=== PATIENT | female | born 1995 | race Caucasian/White ===

== ENCOUNTER 2016-10-18 08:12 | Emergency (ER) | payer OTHER ==
[2016-10-18] MEDS ORDERED: Zofran 4 MG/2 ML VIAL IV ONE (08:34)
[2016-10-18] MEDS ORDERED: Sodium Chloride 0.9% 1000 ML 1,000 ML IV STA (08:34)
--- NOTE | 2016-10-18 08:37 | ERPHSYRPT ---
- History of Present Illness Time Seen by Provider: 10/18/16 08:27 Historian: patient Patient Subjective Stated Complaint: pt states that she has been vomiting and had diarrhea since 0300 this morning states that she has vomited x 2 with diarrhea x 2. denies fever. Triage Nursing Assessment: pt alert warm and dry resp easy non labored pt ambulted to room without difficulty.abdomen soft non tender wet mucus membranes noted. 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 She has cramping abd pain. Finished last menses yesterday- nl. No fever or chills. Prior cholecystectomy and tonsillectomy. Pt of Dr Foley on vyvanse. Timing/Duration: today (early AM) Allergies/Adverse Reactions: Sulfa (Sulfonamide Antibiotics) Allergy (Verified 09/29/15 11:41) Home Medications: Lisdexamfetamine Dimesylate [Vyvanse] 30 mg PO 10/18/16 [History] Hx Tetanus, Diphtheria Vaccination/Date Given: Yes Hx Influenza Vaccination/Date Given: No Hx Pneumococcal Vaccination/Date Given: No Immunizations Up to Date: Yes - Review of Systems Constitutional: Fatigue, Malaise, Weakness, No Fever, No Chills Eyes: No Symptoms Ears, Nose, & Throat: No Symptoms Cardiac: No Chest Pain Abdominal/Gastrointestinal: Abdominal Pain (cramping), Nausea, Vomiting, Diarrhea Genitourinary Symptoms: No Skin: No Rash Neurological: No Headache All Other Systems: Reviewed and Negative - Past Medical History Pertinent Past Medical History: Yes Neurological History: Other ENT History: No Pertinent History Cardiac History: No Pertinent History Respiratory History: No Pertinent History Endocrine Medical History: No Pertinent History Musculoskeletal History: No Pertinent History GI Medical History: Gallbladder Disease History: No Pertinent History Psycho-Social History: No Pertinent History Female Reproductive Disorders: No Pertinent History Other Medical History: ASTHMA - Past Surgical History Past Surgical History: Yes Neuro Surgical History: No Pertinent History Cardiac: No Pertinent History Respiratory: No Pertinent History Gastrointestinal: Cholecystectomy Genitourinary: No Pertinent History Musculoskeletal: No Pertinent History Female Surgical History: No Pertinent History Other Surgical History: GALLBLADDER,TONSILS - Social History Smoking Status: Never smoker Exposure to second hand smoke: Yes Drug Use: none Patient Lives Alone: No - Female History Hx Last Menstrual Period: yesterday Hx Now: No ( CONTROL) - Nursing Vital Signs Nursing Vital Signs: Initial Vital Signs Temperature 98.0 F Temperature Source Oral Pulse Rate 79 Respiratory Rate 18 Blood Pressure [Right Arm] 126/77 Pain Intensity 7 - Physical Exam General Appearance: alert, other (tearful) Eye Exam: PERRL/EOMI Ears, Nose, Throat Exam: normal ENT inspection, moist mucous membranes Neck Exam: normal inspection, non-tender, supple Respiratory Exam: normal breath sounds, lungs clear Cardiovascular Exam: regular rate/rhythm Gastrointestinal/Abdomen Exam: soft, No tenderness, No distention, No mass, No guarding Back Exam: normal inspection Extremity Exam: normal inspection, normal range of motion Neurologic Exam: alert, oriented x 3, cooperative, sensation nml, No motor deficits Skin Exam: warm, dry, No rash SpO2 Interpretation: normal SpO2: 99 Oxygen Delivery: Room Air - Course Nursing assessment & vital signs reviewed: Yes Ordered Tests: Active Orders 24 hr Category Date Time Status Clean Catch Urine Specimen STAT Care 10/18/16 08:34 Active IV Insertion STAT Care 10/18/16 08:34 Active PO Popsicle STAT Care 10/18/16 09:24 Active HCG,QUALITATIVE URINE Stat Lab 10/18/16 09:16 Completed UA W/ MICROSCOPIC Stat Lab 10/18/16 08:34 Completed Medication Summary Generic Name Dose Route Start Last Admin Trade Name Freq PRN Reason Stop Dose Admin Sodium Chloride 1,000 mls @ 999 mls/hr 10/18/16 08:34 10/18/16 08:52 Sodium Chloride 0.9% 1000 Ml IV 10/18/16 09:34 999 mls/hr .Q1H1M STA Administration Discontinued Medications Generic Name Dose Route Start Last Admin Trade Name Freq PRN Reason Stop Dose Admin Sodium Chloride Confirm 10/18/16 08:38 Sodium Chloride 0.9% 1000 Ml Administered 10/18/16 08:39 Dose 1,000 mls @ ud .ROUTE .STK-MED ONE Ondansetron HCl 4 mg 10/18/16 08:34 10/18/16 08:52 Zofran 4 Mg/2 Ml Vial IV 10/18/16 08:35 4 mg STAT ONE Administration Ondansetron HCl Confirm 10/18/16 08:38 Zofran 4 Mg/2 Ml Vial Administered 10/18/16 08:39 Dose 4 mg .ROUTE .STK-MED ONE Lab/Rad Data: Laboratory Results 10/18/16 10/18/16 Range/Units 09:16 08:34 Ur Collection Type CLEAN CATCH Urine Color YELLOW (YELLOW) Urine Appearance CLOUDY (CLEAR) Urine pH 5.5 (5-6) Ur Specific [place] >=1.030 (1.005-1.025) Urine Protein 30 (Negative) Urine Glucose (UA) NEGATIVE (NEGATIVE) mg/dL Urine Ketones NEGATIVE (NEGATIVE) Urine Nitrite NEGATIVE (NEGATIVE) Urine Bilirubin SMALL (NEGATIVE) Urine Urobilinogen 0.2 (0-1) mg/dL Urine WBC (Auto) NEGATIVE (NEGATIVE) Urine RBC (Auto) NEGATIVE (0-5) Clint/ul Urine HCG, Qual NEGATIVE (Negative) Specimen Received 10/18/16 0830 - Progress Progress Note: 10/18/16 09:33 Pt was given IVF bolus and zofran. Will release with V/D instr and zofran Rx. Counseled pt/family regarding: lab results, diagnosis, need for follow-up - Departure Time of Disposition: 09:33 Departure Disposition: Home Clinical Impression: Vomiting and diarrhea Condition: Stable Critical Care Time: No Referrals: SVETA FOLEY [Primary Care Provider] - Instructions: Vomiting -- Adult, Diarrhea and Traveler's Diarrhea -- Adult Additional Instructions: VOMITING AND DIARRHEA 1. Take only small amounts of clear, cool liquids at frequent intervals as tolerated for the next 24-48 hours. Avoid milk products and orange juice. Clear liquids are those liquids which you can see through. 2. Pedialyte and popsicles are recommended clear liquids. 3. If the condition worsens you should contact your family physician or return to the emergency department for re-evaluation. Rx zofran. Sip frequent fluids. 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 Prescriptions: Ondansetron [Zofran Odt] 4 mg PO Q6HPRN PRN #10 tab.rapdis PRN Reason: Nausea/Vomiting
[2016-10-18] MEDS ORDERED: Sodium Chloride 0.9% 1000 ML 1,000 ML ONE (08:38)
[2016-10-18] MEDS ORDERED: Zofran 4 MG/2 ML VIAL ONE (08:38)
[2016-10-18 09:29] LABS: Collection Type CLEAN CATCH
[2016-10-18 09:30] LABS: COMPLETE URINE MICROSCOPIC? YES; Ph 5.5 (5-6)
[2016-10-18 09:37] LABS: Bacteria FEW /HPF (NEGATIVE); Epithelial Cells FEW /HPF (FEW); WBC 0-2 /HPF (0-5)
[2016-10-18 09:51] VITALS: BP 112/56; PULSE 70; O2SAT 100
== END 2016-10-18 10:06 | disposition home or self-care (01) ==
LOC: ED 08:12
DX: R11.2 Nausea with vomiting, unspecified (principal); R19.7 Diarrhea, unspecified; R10.9 Unspecified abdominal pain
CPT/HCPCS: 36000; 81000; 84703; 96360; 96374; 99283; 99284; J2405

== ENCOUNTER 2017-03-23 07:55 | Emergency (ER) | payer OTHER ==
[2017-03-23] MEDS ORDERED: Sodium Chloride 0.9% 1000 ML 1,000 ML IV STA (08:20)
[2017-03-23] MEDS ORDERED: Vistaril 50 MG/ML IM ONE ×2 (08:23→08:55)
--- NOTE | 2017-03-23 08:31 | ERPHSYRPT ---
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 PT DENIES ANY LOSS OF BOWEL OR BLADDER STATES THE SAME THING HAPPENED ABOUT 1 WEEK AGO WAS EVALUATEED IN THE ER STATES "THEY GAVE ME MEDS FOR MY SINUS'S" Triage Nursing Assessment: PT ALERT WARM AND DRY RESP EASY NON LABORED PT AMBULATED FROM WHEELCHAIR TO BED WITHOUT DIFFICULTY. PUPILS ROUND EQUAL AND REACTIVE NS ON THE MONITOR. MOVES ALL EXTREMITES WELL. Physician History: CC: passed out Hx: 21 y/o patient of Dr Foley currently on normal menstrual cycle. She was at work this AM about an hour ago and felt nausea, went to bathroom and had unexpected diarrhea and vomited. She then felt hot. Had severe headache. Got up to walk and passed out without injury. No neck or back pain. No fever or chills. She had a similar episode of headache one week ago. No N/T/W. No chest pain. No abd pain. Timing/Duration: today Severity: moderate Allergies/Adverse Reactions: Sulfa (Sulfonamide Antibiotics) Allergy (Verified 09/29/15 11:41) Home Medications: Sertraline HCl [Zoloft] 100 mg PO 03/23/17 [History] Hx Tetanus, Diphtheria Vaccination/Date Given: Yes Hx Influenza Vaccination/Date Given: No Hx Pneumococcal Vaccination/Date Given: No Immunizations Up to Date: Yes - Review of Systems Constitutional: Malaise, No Fever, No Chills Eyes: No Symptoms Ears, Nose, & Throat: No Symptoms Respiratory: No Cough, No Dyspnea Cardiac: Syncope, No Chest Pain Abdominal/Gastrointestinal: Nausea, Vomiting, Diarrhea, No Abdominal Pain Genitourinary Symptoms: Vaginal Bleeding (menses), No Dysuria, No Musculoskeletal: No Back Pain, No Neck Pain Skin: No Rash Neurological: Headache, No Focal Weakness, No Parasthesia All Other Systems: Reviewed and Negative - Past Medical History Pertinent Past Medical History: Yes Neurological History: Other ENT History: No Pertinent History Cardiac History: No Pertinent History Respiratory History: No Pertinent History Endocrine Medical History: No Pertinent History Musculoskeletal History: No Pertinent History GI Medical History: Gallbladder Disease History: No Pertinent History Psycho-Social History: No Pertinent History Female Reproductive Disorders: No Pertinent History Other Medical History: ASTHMA - Past Surgical History Past Surgical History: Yes Neuro Surgical History: No Pertinent History Cardiac: No Pertinent History Respiratory: No Pertinent History Gastrointestinal: Cholecystectomy Genitourinary: No Pertinent History Musculoskeletal: No Pertinent History Female Surgical History: No Pertinent History Other Surgical History: GALLBLADDER,TONSILS - Social History Smoking Status: Never smoker Exposure to second hand smoke: No Drug Use: none Patient Lives Alone: No - Female History Hx Last Menstrual Period: NOW Hx Now: No ( CONTROL) - Nursing Vital Signs Nursing Vital Signs: Initial Vital Signs Temperature 98.0 F Pulse Rate 78 Respiratory Rate 18 Blood Pressure [] 110/59 Pain Intensity 7 - Physical Exam General Appearance: alert Eye Exam: PERRL/EOMI Ears, Nose, Throat Exam: normal ENT inspection, moist mucous membranes Neck Exam: normal inspection, non-tender, supple, No meningismus, No midline tenderness Respiratory Exam: normal breath sounds, lungs clear Cardiovascular Exam: regular rate/rhythm, No murmur Gastrointestinal/Abdomen Exam: soft, No tenderness, No distention, No mass, No guarding Extremity Exam: normal inspection, normal range of motion Neurologic Exam: alert, oriented x 3, cooperative, cut out stitcher II-XII nml as tested, sensation nml, No motor deficits Skin Exam: warm, dry, No rash SpO2 Interpretation: normal SpO2: 98 Oxygen Delivery: Room Air - Course Nursing assessment & vital signs reviewed: Yes EKG Interpreted by Me: RATE (64), Sinus Rhythm, NORMAL AXIS, NORMAL INTERVALS ( [id number]), NORMAL QRS, NORMAL ST-T - CT Exams head CT Interpretation: Discussed w/radiologist (negative, some artifact) Ordered Tests: Active Orders 24 hr Category Date Time Status Technical Services Representative STAT Care 03/23/17 08:20 Active EKG-ER Only STAT Care 03/23/17 08:20 Active IV Insertion STAT Care 03/23/17 08:20 Active Pulse Oximetry (ED) STAT Care 03/23/17 08:20 Active HEAD WITHOUT CONTRAST [CT] Stat Exams 03/23/17 08:49 Taken CBC W DIFF Stat Lab 03/23/17 08:35 Completed CMP Stat Lab 03/23/17 08:35 Completed HCG QUALITATIVE,SERUM Stat Lab 03/23/17 08:35 Completed Medication Summary Discontinued Medications Generic Name Dose Route Start Last Admin Trade Name Ryley PRN Reason Stop Dose Admin Hydroxyzine HCl 50 mg 03/23/17 08:23 03/23/17 08:59 Vistaril 50 Mg/Ml IM 03/23/17 08:24 50 mg STAT ONE Administration Hydroxyzine HCl Confirm 03/23/17 08:55 Vistaril 50 Mg/Ml Administered 03/23/17 08:56 Dose 50 mg IM .STK-MED ONE Sodium Chloride 1,000 mls @ 999 mls/hr 03/23/17 08:20 03/23/17 08:58 Sodium Chloride 0.9% 1000 Ml IV 03/23/17 09:20 999 mls/hr .Q1H1M STA Administration Sodium Chloride Confirm 03/23/17 08:55 Sodium Chloride 0.9% 1000 Ml Administered 03/23/17 08:56 Dose 1,000 mls @ ud .ROUTE .STK-MED ONE Lab/Rad Data: Laboratory Result Diagrams 03/23/17 08:35 03/23/17 08:35 Laboratory Results 03/23/17 03/23/17 03/23/17 Range/Units 08:35 08:35 08:35 WBC 9.1 (4.0-10.5) K/mm3 RBC 3.98 L (4.1-5.4) M/mm3 Hgb 11.9 L (12.0-16.0) gm/dl Hct 37.1 (35-47) % MCV 93.2 (78-100) fl MCH 29.8 (26-32) pg MCHC 32.1 (32-36) g/dl RDW 12.6 (11.5-14.0) % Plt Count 214 (150-450) K/mm3 MPV 12.0 H (6-9.5) fl Gran % 66.5 H (36.0-66.0) % Lymphocytes % 19.1 L (24.0-44.0) % Monocytes % 13.1 H (0.0-12.0) % Eosinophils % 1.1 (0.00-5.0) % Basophils % 0.2 (0.0-0.4) % Basophils # 0.02 (0-0.4) Sodium 140 (136-145) mEq/L Potassium 3.3 L (3.5-5.1) mEq/L Chloride 104 (98-107) mEq/L Carbon Dioxide 26.7 (21-32) mEq/L Anion Gap 12.8 (5-15) MEQ/L BUN 13 (9-20) mg/dL Creatinine 0.77 (0.55-1.30) mg/dl Estimated GFR > 60 ML/MIN Glucose 94 (70-110) MG/DL Calcium 8.9 (8.5-10.1) mg/dL Total Bilirubin 1.20 H (0.2-1.0) mg/dL AST 16 (15-37) U/L ALT 12 (12-78) U/L Alkaline Phosphatase 65 (46-116) U/L Serum Total Protein 7.0 (6.4-8.2) gm/dL Albumin 3.8 (3.4-5.0) g/dL Serum , Qual NEGATIVE (Negative) - Progress Progress Note: 03/23/17 10:56 Pt stable. No vomiting here. She needs work slip. Advised no driving, climbing, swimming until recheck with Dr Foley. Will release with instr. Counseled pt/family regarding: lab results, diagnosis, need for follow-up, rad results - Departure Time of Disposition: 10:56 Departure Disposition: Home Clinical Impression: Syncope Condition: Stable Critical Care Time: No Referrals: SVETA FOLEY [Primary Care Provider] - Instructions: Fainting Additional Instructions: No driving, climbing, swimming until cleared by Dr Foley. Stay with family todya, rest, and sip fluids. Return for problems or concerns.
[2017-03-23] MEDS ORDERED: Sodium Chloride 0.9% 1000 ML 1,000 ML ONE (08:55)
[2017-03-23 09:01] LABS: BASOPHIL % 0.2 % (0.0-0.4); Eosinophil % 1.1 % (0.00-5.0); Granulocytes % 66.5 % (36.0-66.0); Lymphocytes % 19.1 % (24.0-44.0); Mean Cell Volume 93.2 fl (78-100); Mean Corpuscular Hemoglobin 29.8 pg (26-32); Monocytes % 13.1 % (0.0-12.0); Platelet Count 214 K/mm3 (150-450); Red Blood Count 3.98 M/mm3 (4.1-5.4); Red Cell Distribution Width 12.6 % (11.5-14.0); White Blood Count 9.1 K/mm3 (4.0-10.5)
[2017-03-23 09:24] LABS: ALBUMIN 3.8 g/dL (3.4-5.0); ALKALINE PHOSPHATASE 65 U/L (46-116); ANION GAP 12.8 MEQ/L (5-15); BLOOD UREA NITROGEN 13 mg/dL (9-20); CHLORIDE 104 mEq/L (98-107); Carbon Dioxide 26.7 mEq/L (21-32); Glucose 94 MG/DL (70-110); Potassium 3.3 mEq/L (3.5-5.1); SGOT/AST 16 U/L (15-37); SGPT/ALT 12 U/L (12-78); SODIUM 140 mEq/L (136-145)
[2017-03-23 11:18] VITALS: BP 110/56; PULSE 87; O2SAT 97
--- NOTE | 2017-03-23 16:17 | XRAY ---
Indication: Syncopal episode. Multiple contiguous axial images obtained through the head without contrast. Comparison: June 21, 2006. Minimal midbrain motion artifact and artifact from left external ear metallic jewelry. Otherwise again grossly normal appearing brain parenchyma, ventricles, and bony calvarium. Visualized paranasal sinuses and mastoid air cells are pneumatized and clear. Impression: Motion and metallic artifact as detailed. Again grossly normal CT head without contrast exam. CTDI 70.98
== END 2017-03-23 11:18 | disposition home or self-care (01) ==
LOC: ED 07:55
DX: R55 Syncope and collapse (principal); R11.2 Nausea with vomiting, unspecified; R19.7 Diarrhea, unspecified; R51 Headache
CPT/HCPCS: 36000; 36415; 70450; 80053; 84703; 85025; 93005; 93041; 96372; 99283; 99284; J3410

== ENCOUNTER 2017-04-09 08:36 | Emergency (ER) | payer OTHER ==
[2017-04-09 08:45] VITALS: PULSE 82
[2017-04-09] MEDS ORDERED: TORAdol 30 mg Injection IM ONE (08:54)
[2017-04-09] MEDS ORDERED: BENADRYL 50 MG/ML IM ONE (08:54)
[2017-04-09] MEDS ORDERED: TORAdol 30 mg Injection ONE (08:58)
[2017-04-09] MEDS ORDERED: BENADRYL 50 MG/ML ONE (08:58)
--- NOTE | 2017-04-09 09:00 | ERPHSYRPT ---
- History of Present Illness Time Seen by Provider: 04/09/17 08:50 Source: patient Exam Limitations: no limitations Patient Subjective Stated Complaint: headache Triage Nursing Assessment: headache for 1 hr. both sides of head. states she ' gets headaches but is getting them more often recently. i have an appt with [facility] on ' nausea with no vomiting. pupils venita. skin warm and dry. denies fever Physician History: This is a 21-year-old white female who was seen here on March 23, 2017 secondary to headache at that time she had CBC CMP hCG head CT all which are essentially normal she was given Vistaril IV fluids and discharged she states she followed up with her family doctor and had a normal EEG. She states she has had a headache today which began one hour ago while at work on both sides of her head associated with nausea no vomiting and photophobia she has no fevers. She has not been otherwise ill. Past medical history includes asthma. Past surgical history includes cholecystectomy and tonsillectomy. Social history negative for tobacco or alcohol use. Last menstrual period 2 weeks ago. Timing/Duration: today (one hour ago) Quality: aching Head Pain Location: parietal Severity of Pain-Max: moderate Severity of Pain-Current: moderate Modifying Factors: Worsens With: exposure to light, immobilization, medication, movement, rest, noise, position Associated Symptoms: nausea/vomiting, other (photophobia), No confusion, No dizziness, No fatigue, No facial pain, No fever/chills, No flushing, No light- headedness, No loss of consciousness, No nasal congestion, No nasal drainage, No neck pain, No numbness in legs/feet, No rash, No sweating, No scotoma, No seizures, No sinus infection, No sensitive to light, No speech problems, No stiff neck, No trouble walking, No vision changes, No visual disturbance, No weakness Previous symptoms: same symptoms as today (patient seen in this emergency room 2 weeks ago for same, normal head CT and labs reports EEG recently which is normal) Allergies/Adverse Reactions: Sulfa (Sulfonamide Antibiotics) Allergy (Verified 04/09/17 08:45) Home Medications: Sertraline HCl [Zoloft] 100 mg PO HS 03/23/17 [History] Lamotrigine 100 mg [lamICTAL 100MG TABLET] 100 mg PO HS 04/09/17 [History] Hx Tetanus, Diphtheria Vaccination/Date Given: Yes Hx Influenza Vaccination/Date Given: No Hx Pneumococcal Vaccination/Date Given: No Immunizations Up to Date: Yes - Review of Systems Constitutional: No Fever, No Chills Eyes: Photophobia, No Discharge, No Eye Pain, No Eye Redness, No Itchy, No Tearing, No Vision Changes, No Double Vision, No Foreign Body Sensation Ears, Nose, & Throat: No Symptoms Respiratory: No Cough, No Dyspnea Cardiac: No Chest Pain, No Edema, No Syncope Abdominal/Gastrointestinal: Nausea, Vomiting, No Abdominal Pain, No Diarrhea, No Constipation, No Hematemesis, No Hematochezia, No Melena, No Dysphagia, No Appetite Changes Genitourinary Symptoms: No Dysuria Musculoskeletal: No Back Pain, No Neck Pain Skin: No Rash Neurological: Headache, No Dizziness, No Focal Weakness, No Gait Changes ( sounds wonderful), No Irritability, No Lethargy, No Paralysis, No Parasthesia, No Seizure, No Sensory Changes, No Speech Changes, No Tics, No Vertigo Psychological: No Symptoms Endocrine: No Symptoms All Other Systems: Reviewed and Negative - Past Medical History Pertinent Past Medical History: Yes Neurological History: Other ENT History: No Pertinent History Cardiac History: No Pertinent History Respiratory History: Asthma Endocrine Medical History: No Pertinent History Musculoskeletal History: No Pertinent History GI Medical History: Gallbladder Disease History: No Pertinent History Psycho-Social History: Bipolar, Depression Female Reproductive Disorders: No Pertinent History Other Medical History: headaches - Past Surgical History Past Surgical History: Yes Neuro Surgical History: No Pertinent History Cardiac: No Pertinent History Respiratory: No Pertinent History Gastrointestinal: Cholecystectomy Genitourinary: No Pertinent History Musculoskeletal: No Pertinent History Female Surgical History: No Pertinent History Other Surgical History: tonsils - Social History Smoking Status: Never smoker Exposure to second hand smoke: No Drug Use: none Patient Lives Alone: No - Female History Hx Last Menstrual Period: 2 weeks Hx Now: No ( CONTROL) - Nursing Vital Signs Nursing Vital Signs: Initial Vital Signs Temperature 98.9 F 04/09/17 08:41 Pulse Rate 82 04/09/17 08:41 Respiratory Rate 18 04/09/17 08:41 Blood Pressure 112/75 04/09/17 08:41 O2 Sat by Pulse Oximetry 100 04/09/17 08:41 Pain Scale Pain Intensity 5 - Physical Exam General Appearance: mild distress, other (well-developed well-nourished white female alert oriented 3 in mild distress) Eye Exam: PERRL/EOMI, eyes nml inspection, other (fundi are unremarkable) Ears, Nose, Throat Exam: normal ENT inspection, moist mucous membranes Neck Exam: normal inspection, supple, full range of motion, No meningismus Respiratory Exam: normal breath sounds, lungs clear Cardiovascular Exam: regular rate/rhythm, normal heart sounds Gastrointestinal/Abdominal Exam: soft, No tenderness, No distention Back Exam: normal inspection, normal range of motion Mental Status Exam: alert, oriented x 3, 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 Exam: normal speech, PERRL, No facial droop Coordination/Gait Exam: normal cerebellar function Motor/Sensory Exam: no motor deficit, no sensory deficit, no pronator drift, No pronator drift (R), No pronator drift (L), No sensory deficit, No weak motor strength RUE, No weak motor strength LUE, No weak motor strength RLE, No weak motor strength LLE (motor strength foot over the) DTR Exam: ankle (R): 2+, ankle (L): 2+ Skin Exam: normal color, warm, dry, No rash SpO2 Interpretation: normal (100%) SpO2: 100 Ordered Tests: Medication Summary Discontinued Medications Generic Name Dose Route Start Last Admin Trade Name Ryley PRN Reason Stop Dose Admin Diphenhydramine HCl 25 mg 04/09/17 08:54 04/09/17 08:59 Benadryl 50 Mg/Ml IM 04/09/17 08:55 25 mg STAT ONE Administration Diphenhydramine HCl Confirm 04/09/17 08:58 Benadryl 50 Mg/Ml Administered 04/09/17 08:59 Dose 50 mg .ROUTE .STK-MED ONE Ketorolac Tromethamine 60 mg 04/09/17 08:54 04/09/17 08:59 Toradol 30 Mg Injection IM 04/09/17 08:55 60 mg STAT ONE Administration Ketorolac Tromethamine Confirm 04/09/17 08:58 Toradol 30 Mg Injection Administered 04/09/17 08:59 Dose 60 mg .ROUTE .STK-MED ONE - Progress Progress: improved Air Movement: fair Progress Note: 04/09/17 09:41 Patient is feeling better. Patient with normal EEG normal CT normal labs 2 weeks ago. No fevers today some nausea. Markedly improvement with Benadryl and Toradol not completely pain-free. Will send patient home have her rest dark quiet room Tylenol every 4 hours or Motrin every 6 hours as needed for pain plenty of fluids. Patient to follow-up with her family Dr. Dr. Foley. Return for acute distress or for severe symptoms. - Departure Time of Disposition: 09:42 Departure Disposition: Home Clinical Impression: Headache Qualifiers: Headache type: unspecified Headache chronicity pattern: acute headache Intractability: not intractable Qualified Code(s): R51 - Headache Condition: Fair Critical Care Time: No Referrals: SVETA FOLEY [Primary Care Provider] - Instructions: Headache Additional Instructions: Return home. Rest in a dark quiet room. Tylenol every 4 hours or Motrin every 6 hours as needed for pain. Follow-up with Dr. Foley. Return for acute distress or for severe symptoms.
[2017-04-09 09:40] VITALS: BP 109/62
[2017-04-09 09:44] VITALS: O2SAT 100
== END 2017-04-09 09:45 | disposition home or self-care (01) ==
LOC: ED 08:36
DX: R51 Headache (principal); R11.0 Nausea
CPT/HCPCS: 96372; 99284; J1200; J1885

== ENCOUNTER 2017-04-22 04:39 | Emergency (ER) | payer OTHER ==
[2017-04-22] MEDS ORDERED: TORAdol 30 mg Injection IM ONE (05:04)
[2017-04-22] MEDS ORDERED: Vistaril 50 MG/ML IM ONE ×2 (05:04→05:07)
[2017-04-22] MEDS ORDERED: TORAdol 30 mg Injection ONE (05:07)
--- NOTE | 2017-04-22 05:10 | ERPHSYRPT ---
- History of Present Illness Time Seen by Provider: 04/22/17 04:57 Source: patient Patient Subjective Stated Complaint: Pt C/O intermittent headaches x 1 month. Sts this episode x 3 hours at home unrelieved with excedrin. Sts lights and noise worsen pain. Sts nausea with pain. Describes as crescendo headache. Describes as a band around head. Hx of migraines when she was younger. Triage Nursing Assessment: Pt alert, oriented, answers all questions appropriately. Pupils PERRLA. Pt able to follow all commands. Steady gait to tx room noted. Physician History: CC: headache Hx: 21 y/o patient of Dr Foley. She has hx of bipolar disease. She has had recent headaches since stopping her zoloft and lamictal a month ago. She reports gradual worsening headache past 3 hours. Similar to prior headaches. Worse in back of her head. She has nausea and photophobia. She has no fever. No N/T/W. She was getting ready to go to work so came here. LMP 3 days ago. Severity of Pain-Max: severe Severity of Pain-Current: severe Allergies/Adverse Reactions: Sulfa (Sulfonamide Antibiotics) Allergy (Verified 04/22/17 04:46) Home Medications: Sertraline HCl [Zoloft] 100 mg PO HS 03/23/17 [History] Lamotrigine 100 mg [lamICTAL 100MG TABLET] 100 mg PO HS 04/09/17 [History] Hx Tetanus, Diphtheria Vaccination/Date Given: Yes Hx Influenza Vaccination/Date Given: No Hx Pneumococcal Vaccination/Date Given: No Immunizations Up to Date: Yes - Review of Systems Constitutional: No Fever, No Chills Eyes: Photophobia Ears, Nose, & Throat: No Symptoms Respiratory: No Cough Cardiac: No Chest Pain Abdominal/Gastrointestinal: Nausea, No Abdominal Pain, No Vomiting, No Diarrhea Genitourinary Symptoms: No Musculoskeletal: No Neck Pain Skin: No Rash Neurological: Headache, No Dizziness, No Focal Weakness, No Parasthesia All Other Systems: Reviewed and Negative - Past Medical History Pertinent Past Medical History: Yes Neurological History: Other ENT History: No Pertinent History Cardiac History: No Pertinent History Respiratory History: Asthma Endocrine Medical History: No Pertinent History Musculoskeletal History: No Pertinent History GI Medical History: Gallbladder Disease History: No Pertinent History Psycho-Social History: Bipolar, Depression Female Reproductive Disorders: No Pertinent History Other Medical History: headaches - Past Surgical History Past Surgical History: Yes Neuro Surgical History: No Pertinent History Cardiac: No Pertinent History Respiratory: No Pertinent History Gastrointestinal: Cholecystectomy Genitourinary: No Pertinent History Musculoskeletal: No Pertinent History Female Surgical History: No Pertinent History Other Surgical History: tonsils - Social History Smoking Status: Never smoker Exposure to second hand smoke: No Drug Use: none Patient Lives Alone: No (works [employer]) - Female History Hx Last Menstrual Period: 3 days ago Hx Now: No ( CONTROL) - Nursing Vital Signs Nursing Vital Signs: Initial Vital Signs Temperature 97.8 F 04/22/17 04:46 Pulse Rate 75 04/22/17 04:46 Respiratory Rate 16 04/22/17 04:46 Blood Pressure 108/69 04/22/17 04:46 O2 Sat by Pulse Oximetry 100 04/22/17 04:46 Pain Scale Pain Intensity 8 - Physical Exam General Appearance: alert Eye Exam: PERRL/EOMI Ears, Nose, Throat Exam: normal ENT inspection, moist mucous membranes Neck Exam: normal inspection, non-tender, supple Respiratory Exam: normal breath sounds, lungs clear Cardiovascular Exam: regular rate/rhythm Gastrointestinal/Abdominal Exam: soft, No tenderness, No distention Back Exam: normal inspection, normal range of motion Extremity Exam: normal inspection, normal range of motion Mental Status Exam: alert, oriented x 3, 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 NRB oxygen and IM toradol and vistaril given. Advised she see Dr Foley and Dr Velazquez as likely needs to be on prevention meds and also bipolar meds. Counseled pt/family regarding: diagnosis, need for follow-up - Departure Time of Disposition: 05:09 Departure Disposition: Home Clinical Impression: Headache, Bipolar disorder Condition: Stable Critical Care Time: No Referrals: SVETA FOLEY [Primary Care Provider] - Instructions: Headache
[2017-04-22 05:23] VITALS: O2SAT 100
[2017-04-22 05:39] VITALS: BP 128/74; PULSE 65
== END 2017-04-22 05:45 | disposition home or self-care (01) ==
LOC: ED 04:39
DX: R51 Headache (principal); F31.9 Bipolar disorder, unspecified
CPT/HCPCS: 96372; 99283; J1885; J3410

== ENCOUNTER 2017-05-25 10:56 | Emergency (ER) | payer SELFPAY ==
[2017-05-25 11:04] VITALS: BP 100/45; PULSE 93; O2SAT 96
--- NOTE | 2017-05-25 11:15 | ERPHSYRPT ---
- History of Present Illness Time Seen by Provider: 05/25/17 11:09 Source: patient Exam Limitations: no limitations Patient Subjective Stated Complaint: PT REPORTS SHE WAS MOPPING LAST NIGHT LATISHA 2200 WHEN SHE SLIPPED ET FELL-REPORTS HIT HER MOUTH ON COFFEE TABLE-REPORTS PAIN ET LAC-DENIES LOC-DENIES N/V Triage Nursing Assessment: PT PINK WARM ET [id number] NOTED TO LEFT CORNER OF MOUTH-PT ABLE TO SPEAK WITHOUT DIFFICULTY Physician History: 21-year-old female came to the emergency room with injury to her left side. Angle of mouth which happened last night approximately 12 hours ago while she was mopping the floor and hit the side of the table on the side of her mouth. Denies any other injury. Timing/Duration: yesterday Severity: mild Associated Symptoms: denies symptoms Allergies/Adverse Reactions: Sulfa (Sulfonamide Antibiotics) Allergy (Verified 05/25/17 11:04) Hives Home Medications: No Reportable Medications [No Reported Medications] 05/25/17 [History] Hx Tetanus, Diphtheria Vaccination/Date Given: Yes Hx Influenza Vaccination/Date Given: No Hx Pneumococcal Vaccination/Date Given: No Immunizations Up to Date: Yes - Review of Systems Constitutional: No Symptoms Eyes: No Symptoms Ears, Nose, & Throat: Mouth Swelling Respiratory: No Symptoms Cardiac: No Symptoms Abdominal/Gastrointestinal: No Symptoms Musculoskeletal: Fall, Injury - Past Medical History Pertinent Past Medical History: Yes Neurological History: Other ENT History: No Pertinent History Cardiac History: No Pertinent History Respiratory History: Asthma Endocrine Medical History: No Pertinent History Musculoskeletal History: No Pertinent History GI Medical History: Gallbladder Disease History: No Pertinent History Psycho-Social History: Bipolar, Depression Female Reproductive Disorders: No Pertinent History Other Medical History: headaches - Past Surgical History Past Surgical History: Yes Neuro Surgical History: No Pertinent History Cardiac: No Pertinent History Respiratory: No Pertinent History Gastrointestinal: Cholecystectomy Genitourinary: No Pertinent History Musculoskeletal: No Pertinent History Female Surgical History: No Pertinent History Other Surgical History: tonsils - Social History Smoking Status: Never smoker Exposure to second hand smoke: No Drug Use: none Patient Lives Alone: No - Female History Hx Last Menstrual Period: 2 WKS AGO Hx Now: No ( CONTROL) - Nursing Vital Signs Nursing Vital Signs: Initial Vital Signs Temperature 98.3 F 05/25/17 11:00 Pulse Rate 93 H 05/25/17 11:00 Respiratory Rate 20 09/16/17 11:00 Blood Pressure 100/45 05/25/17 11:00 O2 Sat by Pulse Oximetry 96 05/25/17 11:00 Pain Scale Pain Intensity 10 - Physical Exam General Appearance: no apparent distress Eye Exam: PERRL/EOMI Ears, Nose, Throat Exam: normal ENT inspection, other (swollen left side angle of mouth, no dental or inner mouth injury) SpO2: 96 Oxygen Delivery: Room Air - Course Nursing assessment & vital signs reviewed: Yes - Progress Progress: unchanged Progress Note: 05/25/17 11:12 Patient is informed that her wound is more than 12 hours old. She already has started healing process and we will not be able to take a suture. She is advised to put icepack, take 200 mg ibuprofen and 325 mg Tylenol every 4 hours for next 24 hours, then every 6 hours for next 48 hours. She is advised to follow-up with her primary care physician in next 2-3 days. Counseled pt/family regarding: diagnosis, need for follow-up - Departure Time of Disposition: 11:14 Departure Disposition: Home Clinical Impression: Injury of face, superficial Qualifiers: Encounter type: initial encounter Qualified Code(s): S00.80XA - Unspecified superficial injury of other part of head, initial encounter Condition: Good Critical Care Time: No Referrals: SVETA MONTESINOS [Primary Care Provider] - Additional Instructions: Your wound is more than 12 hours old. She already has started healing process and we will not be able to take a suture. You are advised to put ice pack, take 200 mg ibuprofen and 325 mg Tylenol every 4 hours for next 24 hours, then every 6 hours for next 48 hours. You are advised to follow-up with her primary care physician in next 2-3 days.
== END 2017-05-25 11:15 | disposition home or self-care (01) ==
LOC: ED 10:56
DX: S00.80XA Unspecified superficial injury of other part of head, initial encounter (principal); W01.190A Fall on same level from slipping, tripping and stumbling with subsequent striking against furniture, initial encounter
CPT/HCPCS: 99281

== ENCOUNTER 2017-08-05 12:55 | Emergency (ER) | payer OTHER ==
[2017-08-05] MEDS ORDERED: Sodium Chloride 0.9% 1000 ML 1,000 ML IV STA (13:27)
[2017-08-05] MEDS ORDERED: Zofran 4 MG/2 ML VIAL IV ONE (13:27)
--- NOTE | 2017-08-05 13:35 | ERPHSYRPT ---
- History of Present Illness Time Seen by Provider: 08/05/17 13:27 Historian: patient Exam Limitations: no limitations Patient Subjective Stated Complaint: Nausea, vomiting and generalized abdominal pain Triage Nursing Assessment: No distress noted, pt states generalized abdominal pain onset at 0400, nausea and vomiting began shortly after. Physician History: 22-year-old white female arrives with complaint of nausea vomiting diffuse abdominal pain symptoms since 4 AM. Patient states she's had multiple loose stools and vomiting. No fevers. Past medical history includes asthma, gallbladder disease, bipolar depression, headaches. Past surgical history includes cholecystectomy and tonsils. Timing/Duration: today (4 AM) Activities at Onset: rest Quality: cramping Abdominal Pain Onset Location: generalized abdomen Pain Radiation: no radiation Severity of Pain-Max: moderate Severity of Pain-Current: mild Modifying Factors: Improves With: nothing Associated Symptoms: diarrhea, nausea, vomiting, No back, No chest pain, No diaphoresis, No fever/chills, No fatigue, No headache, No heartburn, No loss of appetite, No neck pain, No rash, No shortness of breath, No syncope, No weakness Previous symptoms: no prior history Allergies/Adverse Reactions: Sulfa (Sulfonamide Antibiotics) Allergy (Verified 05/25/17 11:04) Hives Hx Tetanus, Diphtheria Vaccination/Date Given: Yes Hx Influenza Vaccination/Date Given: No Hx Pneumococcal Vaccination/Date Given: No Immunizations Up to Date: No - Review of Systems Constitutional: No Fever, No Chills Eyes: No Symptoms Ears, Nose, & Throat: No Symptoms Respiratory: No Cough, No Dyspnea Cardiac: No Chest Pain, No Edema, No Syncope Abdominal/Gastrointestinal: No Abdominal Pain, No Nausea, No Vomiting, No Diarrhea Genitourinary Symptoms: No Dysuria Musculoskeletal: No Back Pain, No Neck Pain Skin: No Rash Neurological: No Dizziness, No Focal Weakness, No Sensory Changes Psychological: No Symptoms Endocrine: No Symptoms All Other Systems: Reviewed and Negative - Past Medical History Pertinent Past Medical History: Yes Neurological History: Other ENT History: No Pertinent History Cardiac History: No Pertinent History Respiratory History: Asthma Endocrine Medical History: No Pertinent History Musculoskeletal History: No Pertinent History GI Medical History: Gallbladder Disease History: No Pertinent History Psycho-Social History: Bipolar, Depression Female Reproductive Disorders: No Pertinent History Other Medical History: headaches - Past Surgical History Past Surgical History: Yes Neuro Surgical History: No Pertinent History Cardiac: No Pertinent History Respiratory: No Pertinent History Gastrointestinal: Cholecystectomy Genitourinary: No Pertinent History Musculoskeletal: No Pertinent History Female Surgical History: No Pertinent History Other Surgical History: tonsils - Social History Smoking Status: Never smoker Exposure to second hand smoke: No Drug Use: none Patient Lives Alone: Yes - Female History Hx Last Menstrual Period: 07/22/2017 Hx Now: No - Nursing Vital Signs Nursing Vital Signs: Initial Vital Signs Temperature 98.2 F 08/05/17 12:59 Respiratory Rate 15 08/05/17 12:59 Blood Pressure 124/85 08/05/17 12:59 O2 Sat by Pulse Oximetry 98 08/05/17 12:59 Pain Scale Pain Intensity 6 - Physical Exam General Appearance: mild distress Eye Exam: PERRL/EOMI, eyes nml inspection Ears, Nose, Throat Exam: normal ENT inspection, pharynx normal, moist mucous membranes Neck Exam: normal inspection, non-tender, supple, full range of motion Respiratory Exam: normal breath sounds, lungs clear, No respiratory distress Cardiovascular Exam: regular rate/rhythm, normal heart sounds Gastrointestinal/Abdomen Exam: soft, normal bowel sounds, tenderness (diffuse tenderness) Back Exam: normal inspection, normal range of motion, No CVA tenderness, No vertebral tenderness Extremity Exam: normal inspection (him the left elbow somebody negativ), normal range of motion, pelvis stable Neurologic Exam: alert, oriented x 3, cooperative, normal mood/affect, nml cerebellar function, sensation nml, No motor deficits Skin Exam: normal color, warm, dry SpO2 Interpretation: normal (98%) SpO2: 98 Oxygen Delivery: Room Air - Course Nursing assessment & vital signs reviewed: Yes Ordered Tests: Active Orders 24 hr Category Date Time Status IV Insertion STAT Care 08/05/17 13:27 Active AMYLASE Stat Lab 08/05/17 13:15 Completed CBC W DIFF Stat Lab 08/05/17 13:15 Completed CMP Stat Lab 08/05/17 13:15 Completed HCG QUALITATIVE,SERUM Stat Lab 08/05/17 13:15 Completed LIPASE Stat Lab 08/05/17 13:15 Completed UA W/RFX UR CULTURE Stat Lab 08/05/17 13:15 Completed Medication Summary Discontinued Medications Generic Name Dose Route Start Last Admin Trade Name Freq PRN Reason Stop Dose Admin Sodium Chloride 1,000 mls @ 999 mls/hr 08/05/17 13:27 08/05/17 13:43 Sodium Chloride 0.9% 1000 Ml IV 08/05/17 14:27 999 mls/hr .Q1H1M STA Administration Sodium Chloride Confirm 08/05/17 13:36 Sodium Chloride 0.9% 1000 Ml Administered 08/05/17 13:37 Dose 1,000 mls @ ud .ROUTE .STK-MED ONE Ondansetron HCl 4 mg 08/05/17 13:27 08/05/17 13:43 Zofran 4 Mg/2 Ml Vial IV 08/05/17 13:28 4 mg STAT ONE Administration Ondansetron HCl Confirm 08/05/17 13:36 Zofran 4 Mg/2 Ml Vial Administered 08/05/17 13:37 Dose 4 mg .ROUTE .STK-MED ONE Lab/Rad Data: Laboratory Result Diagrams 08/05/17 13:15 08/05/17 13:15 Laboratory Results 08/05/17 08/05/17 08/05/17 Range/Units 13:15 13:15 13:15 WBC 6.1 (4.0-10.5) K/mm3 RBC 4.34 (4.1-5.4) M/mm3 Hgb 12.7 (12.0-16.0) gm/dl Hct 40.3 (35-47) % MCV 92.9 (78-100) fl MCH 29.3 (26-32) pg MCHC 31.5 L (32-36) g/dl RDW 13.0 (11.5-14.0) % Plt Count 220 (150-450) K/mm3 MPV 11.6 H (6-9.5) fl Gran % 74.7 H (36.0-66.0) % Lymphocytes % 12.9 L (24.0-44.0) % Monocytes % 11.9 (0.0-12.0) % Eosinophils % 0.3 (0.00-5.0) % Basophils % 0.2 (0.0-0.4) % Basophils # 0.01 (0-0.4) Sodium 143 (136-145) mEq/L Potassium 3.3 L (3.5-5.1) mEq/L Chloride 104 (98-107) mEq/L Carbon Dioxide 29.6 (21-32) mEq/L Anion Gap 12.4 (5-15) MEQ/L BUN 7 L (9-20) mg/dL Creatinine 0.59 (0.55-1.30) mg/dl Estimated GFR > 60 ML/MIN Glucose 90 (70-110) MG/DL Calcium 8.7 (8.5-10.1) mg/dL Total Bilirubin 2.10 H (0.2-1.0) mg/dL AST 15 (15-37) U/L ALT 24 (12-78) U/L Alkaline Phosphatase 78 (46-116) U/L Serum Total Protein 7.7 (6.4-8.2) gm/dL Albumin 3.8 (3.4-5.0) g/dL Amylase 30 (25-115) U/L Lipase 101 (73-393) U/L Serum , Qual NEGATIVE (Negative) Ur Collection Type Urine Color (YELLOW) Urine Appearance (CLEAR) Urine pH (5-6) Ur Specific [place] (1.005-1.025) Urine Protein (Negative) Urine Ketones (NEGATIVE) Urine Blood (0-5) Clint/ul Urine Nitrite (NEGATIVE) Urine Bilirubin (NEGATIVE) Urine Urobilinogen (0-1) mg/dL Ur Leukocyte Esterase (NEGATIVE) Urine Culture Reflexed (NO) Urine Glucose (NEGATIVE) mg/dL Specimen Received 08/05/17 Range/Units 13:15 WBC (4.0-10.5) K/mm3 RBC (4.1-5.4) M/mm3 Hgb (12.0-16.0) gm/dl Hct (35-47) % MCV (78-100) fl MCH (26-32) pg MCHC (32-36) g/dl RDW (11.5-14.0) % Plt Count (150-450) K/mm3 MPV (6-9.5) fl Gran % (36.0-66.0) % Lymphocytes % (24.0-44.0) % Monocytes % (0.0-12.0) % Eosinophils % (0.00-5.0) % Basophils % (0.0-0.4) % Basophils # (0-0.4) Sodium (136-145) mEq/L Potassium (3.5-5.1) mEq/L Chloride (98-107) mEq/L Carbon Dioxide (21-32) mEq/L Anion Gap (5-15) MEQ/L BUN (9-20) mg/dL Creatinine (0.55-1.30) mg/dl Estimated GFR ML/MIN Glucose (70-110) MG/DL Calcium (8.5-10.1) mg/dL Total Bilirubin (0.2-1.0) mg/dL AST (15-37) U/L ALT (12-78) U/L Alkaline Phosphatase (46-116) U/L Serum Total Protein (6.4-8.2) gm/dL Albumin (3.4-5.0) g/dL Amylase (25-115) U/L Lipase (73-393) U/L Serum , Qual (Negative) Ur Collection Type VOID Urine Color YELLOW (YELLOW) Urine Appearance CLEAR (CLEAR) Urine pH 7.0 (5-6) Ur Specific [place] 1.015 (1.005-1.025) Urine Protein NEGATIVE (Negative) Urine Ketones NEGATIVE (NEGATIVE) Urine Blood NEGATIVE (0-5) Clint/ul Urine Nitrite NEGATIVE (NEGATIVE) Urine Bilirubin NEGATIVE (NEGATIVE) Urine Urobilinogen 4 (0-1) mg/dL Ur Leukocyte Esterase NEGATIVE (NEGATIVE) Urine Culture Reflexed NO (NO) Urine Glucose NEGATIVE (NEGATIVE) mg/dL Specimen Received 08/05/2017 1338 - Progress Progress: improved Progress Note: 08/05/17 14:41 Patient feeling better after IV Zofran and of normal saline. Patient's labs essentially normal with the exception of bilirubin of 2. Will plan discharge patient Phenergan clear fluids. Patient will need to follow-up with her family doctor. - Departure Time of Disposition: 14:42 Departure Disposition: Home Clinical Impression: Abdominal pain Qualifiers: Abdominal location: generalized Qualified Code(s): R10.84 - Generalized abdominal pain Vomiting Qualifiers: Vomiting type: unspecified Vomiting Intractability: non-intractable Nausea presence: with nausea Qualified Code(s): R11.2 - Nausea with vomiting, unspecified Condition: Fair Critical Care Time: No Referrals: SVETA MONTESINOS [Primary Care Provider] - Instructions: Vomiting -- Adult Additional Instructions: Return home. Plenty of fluids clear fluids only 24-48 hours if nausea vomiting. Phenergan 25 mg orally every 4-6 hours as needed for nausea vomiting or abdominal pain. Follow-up with your family doctor. Return for acute distress or for severe symptoms. Prescriptions: Promethazine HCl 25 mg [Phenergan 25 mg] 25 mg PO Q4-6HPRN PRN #12 tablet PRN Reason: nausea , vomiting, or abd pain
[2017-08-05 13:36] LABS: BASOPHIL % 0.2 % (0.0-0.4); Eosinophil % 0.3 % (0.00-5.0); Granulocytes % 74.7 % (36.0-66.0); Lymphocytes % 12.9 % (24.0-44.0); Mean Cell Volume 92.9 fl (78-100); Mean Corpuscular Hemoglobin 29.3 pg (26-32); Mean Platelet Volume 11.6 fl (6-9.5); Monocytes % 11.9 % (0.0-12.0); Platelet Count 220 K/mm3 (150-450); Red Blood Count 4.34 M/mm3 (4.1-5.4); White Blood Count 6.1 K/mm3 (4.0-10.5)
[2017-08-05] MEDS ORDERED: Zofran 4 MG/2 ML VIAL ONE (13:36)
[2017-08-05] MEDS ORDERED: Sodium Chloride 0.9% 1000 ML 1,000 ML ONE (13:36)
[2017-08-05 13:59] LABS: Collection Type VOID
[2017-08-05 14:00] LABS: ADD URINE CULTURE? NO (NO); Bilirubin NEGATIVE (NEGATIVE); Blood NEGATIVE Ery/ul (0-5); COMPLETE URINE MICROSCOPIC? NO; Glucose NEGATIVE (NEGATIVE); Leukocyte Esterase NEGATIVE (NEGATIVE)
[2017-08-05 14:06] LABS: ALBUMIN 3.8 g/dL (3.4-5.0); ALKALINE PHOSPHATASE 78 U/L (46-116); ANION GAP 12.4 MEQ/L (5-15); BLOOD UREA NITROGEN 7 mg/dL (9-20); CHLORIDE 104 mEq/L (98-107); Carbon Dioxide 29.6 mEq/L (21-32); Glucose 90 MG/DL (70-110); LIPASE 101 U/L (73-393); Potassium 3.3 mEq/L (3.5-5.1); SGOT/AST 15 U/L (15-37); SGPT/ALT 24 U/L (12-78); SODIUM 143 mEq/L (136-145); Total Protein 7.7 gm/dL (6.4-8.2)
[2017-08-05 15:00] VITALS: BP 119/78; PULSE 88; O2SAT 98
== END 2017-08-05 15:00 | disposition home or self-care (01) ==
LOC: ED 12:55
DX: R10.84 Generalized abdominal pain (principal); R11.2 Nausea with vomiting, unspecified; R19.7 Diarrhea, unspecified
CPT/HCPCS: 36000; 36415; 80053; 81002; 82150; 83690; 84703; 85025; 96360; 99284; J2405

== ENCOUNTER 2018-06-29 23:54 | Emergency (ER) | payer OTHER ==
[2018-06-30 00:21] VITALS: BP 114/71; PULSE 74; O2SAT 98
--- NOTE | 2018-06-30 00:22 | ERPHSYRPT ---
- History of Present Illness Time Seen by Provider: 06/30/18 00:15 Source: patient Patient Subjective Stated Complaint: PT IS ALERT AND ORIENTED. PT IS AMBULATORY WITH SLIGHT LIMP. PT STATES SHE WAS MOVING AND SLID TWISTING HER ANKLE. PT HAS SLIGHT SWELLING TO HER RIGHT ANKLE ON THE OUTER SIDE. NO DISCOLORATION NOTED. A SMALL OPEN AREA IS NOTED TO THE RIGHT SMALL TOE. NO LOSS OF SENSATION, CAP REFIL <3. PT DENIES NUMBNESS OR TINGLING. Triage Nursing Assessment: SEE ABOVE Physician History: 23 y/o white female presents with right foot and ankle pain after injury while lifting/moving furniture. occurred earlier during the day. Method of Injury: twisted Occurred: this afternoon Quality: constant, aching Severity of Pain-Max: mild Severity of Pain-Current: mild Lower Extremities Pain: foot: right, ankle: right Modifying Factors: Improves With: movement (worsens) Associated Symptoms: No unable to bear weight, No dizzy, No fainted, No seizure , No snapping sensation Allergies/Adverse Reactions: Sulfa (Sulfonamide Antibiotics) Allergy (Verified 05/25/17 11:04) Hives Hx Tetanus, Diphtheria Vaccination/Date Given: Yes Hx Influenza Vaccination/Date Given: No Hx Pneumococcal Vaccination/Date Given: No Immunizations Up to Date: Yes - Review of Systems Constitutional: No Symptoms Eyes: No Symptoms Ears, Nose, & Throat: No Symptoms Respiratory: No Symptoms Cardiac: No Symptoms Abdominal/Gastrointestinal: No Symptoms Genitourinary Symptoms: No Symptoms Musculoskeletal: Injury (twisted right foot and ankle) Skin: No Symptoms Neurological: No Symptoms Psychological: No Symptoms Endocrine: No Symptoms Hematologic/Lymphatic: No Symptoms All Other Systems: Reviewed and Negative - Past Medical History Pertinent Past Medical History: Yes Neurological History: Other ENT History: No Pertinent History Cardiac History: No Pertinent History Respiratory History: Asthma Endocrine Medical History: No Pertinent History Musculoskeletal History: No Pertinent History GI Medical History: Gallbladder Disease History: No Pertinent History Psycho-Social History: Bipolar, Depression Female Reproductive Disorders: No Pertinent History Other Medical History: headaches - Past Surgical History Past Surgical History: Yes Neuro Surgical History: No Pertinent History Cardiac: No Pertinent History Respiratory: No Pertinent History Gastrointestinal: Cholecystectomy Genitourinary: No Pertinent History Musculoskeletal: No Pertinent History Female Surgical History: No Pertinent History Other Surgical History: tonsils - Social History Smoking Status: Never smoker Exposure to second hand smoke: No Drug Use: none Patient Lives Alone: Yes - Female History Hx Now: No - Nursing Vital Signs Nursing Vital Signs: Initial Vital Signs Pulse Rate 74 06/30/18 00:15 Respiratory Rate 16 06/30/18 00:15 Blood Pressure 114/71 06/30/18 00:15 O2 Sat by Pulse Oximetry 98 06/30/18 00:15 Pain Scale Pain Intensity 8 - Physical Exam General Appearance: no apparent distress, alert, anxiety Eyes, Ears, Nose, Throat Exam: normal ENT inspection Neck Exam: normal inspection, non-tender, supple, full range of motion Cardiovascular/Respiratory Exam: chest non-tender, normal breath sounds, regular rate/rhythm, heart sounds normal Gastrointestinal/Abdominal Exam: non-tender, soft, No guarding, No tenderness Back Exam: normal inspection, normal range of motion, CVA tenderness Hips Exam: bilateral: non-tender, normal inspection, normal range of motion Legs Exam: bilateral leg: non-tender, normal inspection, normal range of motion Knees Exam: bilateral knee: non-tender, normal inspection, normal range of motion Ankle Exam: right ankle: soft tissue tenderness, swelling, left ankle: non- tender, normal inspection, normal range of motion Foot Exam: right foot: soft tissue tenderness, swelling, left foot: non-tender, normal inspection, normal range of motion Neuro/Tendon Exam: normal sensation, normal motor functions, normal tendon functions Mental Status Exam: alert, oriented x 3, cooperative Skin Exam: normal color, warm, dry, ecchymosis (right lateral foot and ankle) SpO2: 98 Oxygen Delivery: Room Air - Course Nursing assessment & vital signs reviewed: Yes Ordered Tests: Active Orders 24 hr Category Date Time Status Devon Bandage Application -[facility] STAT Care 06/30/18 00:48 Active ANKLE (3 VIEWS) Stat Exams 06/30/18 00:24 Taken FOOT (MINIMUM 3 VIEWS) Stat Exams 06/30/18 00:24 Taken - Progress Progress: unchanged Progress Note: 06/30/18 01:07 right foot and ankle xray no acute fx or dislocation Counseled pt/family regarding: diagnosis, need for follow-up, rad results - Departure Time of Disposition: 01:08 Departure Disposition: Home Clinical Impression: Ankle sprain, Foot sprain Condition: Stable Critical Care Time: No Referrals: SVETA MONTESINOS [Primary Care Provider] - Additional Instructions: wear devon bandage for comfort. ice pack 3 times daily for 2 days. tylenol and ibuprofen for pain.
--- NOTE | 2018-06-30 09:08 | XRAY ---
Indication: Pain following injury. Comparison: None 3 views of the right ankle obtained. No bony, articular, or soft tissue abnormalities.
--- NOTE | 2018-06-30 09:10 | XRAY ---
Indication: Pain following injury. Comparison: None 3 nonweightbearing views of the right foot demonstrates tiny well-circumscribed 1st IP joint heterotopic ossification either developmental versus old injury. No bony, articular, or soft tissue abnormalities.
== END 2018-06-30 01:36 | disposition home or self-care (01) ==
LOC: ED 23:54
DX: S93.401A Sprain of unspecified ligament of right ankle, initial encounter (principal); M25.571 Pain in right ankle and joints of right foot; M25.471 Effusion, right ankle; R51 Headache; X50.1XXA Overexertion from prolonged static or awkward postures, initial encounter; Y93.89 Activity, other specified; S93.601A Unspecified sprain of right foot, initial encounter; F31.9 Bipolar disorder, unspecified; R58 Hemorrhage, not elsewhere classified; J45.909 Unspecified asthma, uncomplicated
CPT/HCPCS: 73610; 73630; 99283

== ENCOUNTER 2018-07-02 10:49 | Emergency (ER) | payer OTHER ==
[2018-07-02 10:59] VITALS: O2SAT 99
[2018-07-02] MEDS ORDERED: Celestone Soluspan 6MG/ML IM ONE (11:02)
[2018-07-02] MEDS ORDERED: Celestone Soluspan 6MG/ML ONE (11:06)
--- NOTE | 2018-07-02 11:09 | ERPHSYRPT ---
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; no trouble breathing or palpatations; no ohter complaints Timing/Duration: today (worse), yesterday (onset) Quality: itchy Severity: moderate Location: extremities (right upper) Possible Causes: no cause identified Associated Symptoms: change in skin texture, rash, other (pruritis) Allergies/Adverse Reactions: peach Allergy (Verified 07/02/18 11:00) Sulfa (Sulfonamide Antibiotics) Allergy (Verified 05/25/17 11:04) Hives Home Medications: No Reportable Medications [No Reported Medications] 07/02/18 [History] Hx Tetanus, Diphtheria Vaccination/Date Given: Yes Hx Influenza Vaccination/Date Given: No Hx Pneumococcal Vaccination/Date Given: No Immunizations Up to Date: Yes - Review of Systems Constitutional: No Symptoms Eyes: No Symptoms Ears, Nose, & Throat: No Symptoms Respiratory: No Cough, No Dyspnea, No Wheezing Cardiac: No Chest Pain, No Palpitations, No Syncope Abdominal/Gastrointestinal: No Abdominal Pain, No Nausea, No Vomiting, No Diarrhea Genitourinary Symptoms: No Symptoms Musculoskeletal: No Symptoms Skin: Pruritis, Rash (right upper arm and dorsal hand) Neurological: No Symptoms Psychological: No Symptoms - Past Medical History Pertinent Past Medical History: Yes Neurological History: Other ENT History: No Pertinent History Cardiac History: No Pertinent History Respiratory History: Asthma Endocrine Medical History: No Pertinent History Musculoskeletal History: No Pertinent History GI Medical History: Gallbladder Disease History: No Pertinent History Psycho-Social History: Bipolar, Depression Female Reproductive Disorders: No Pertinent History Other Medical History: headaches - Past Surgical History Past Surgical History: Yes Neuro Surgical History: No Pertinent History Cardiac: No Pertinent History Respiratory: No Pertinent History Gastrointestinal: Cholecystectomy Genitourinary: No Pertinent History Musculoskeletal: No Pertinent History Female Surgical History: No Pertinent History Other Surgical History: tonsils - Social History Smoking Status: Never smoker Exposure to second hand smoke: Yes Alcohol Use: None Drug Use: none Patient Lives Alone: No Significant Family History: no pertinent family hx - Female History Hx Last Menstrual Period: jun Hx Now: No - Nursing Vital Signs Nursing Vital Signs: Initial Vital Signs Temperature 98.3 F 07/02/18 10:55 Pulse Rate 75 07/02/18 10:55 Respiratory Rate 16 07/02/18 10:55 Blood Pressure 125/79 07/02/18 10:55 O2 Sat by Pulse Oximetry 99 07/02/18 10:55 Pain Scale Pain Intensity 0 - Physical Exam General Appearance: mild distress, alert, obese Eye Exam: PERRL/EOMI, eyes nml inspection Ears, Nose, Throat Exam: normal ENT inspection, pharynx normal, moist mucous membranes Neck Exam: normal inspection, non-tender, supple, full range of motion Respiratory Exam: normal breath sounds, chest tenderness, lungs clear, airway intact, No respiratory distress, No wheezing Cardiovascular Exam: regular rate/rhythm, normal heart sounds, normal peripheral pulses, No murmur Gastrointestinal/Abdomen Exam: soft, normal bowel sounds, No tenderness Pelvic Exam: not done Rectal Exam: deferred Back Exam: normal inspection, normal range of motion, No CVA tenderness Extremity Exam: normal inspection (except RUE), normal range of motion Neurologic Exam: alert, oriented x 3, cooperative, first assist II-XII nml as tested, normal mood/affect, nml cerebellar function, nml station & gait Skin Exam: normal color, warm, dry, rash (patches and hives post right upper arm ; also smaller circumscribed lesions consistant with flea bites; also on dorsum of right hand;) Lymphatic Exam: No adenopathy SpO2 Interpretation: normal SpO2: 99 Oxygen Delivery: Room Air - Course Nursing assessment & vital signs reviewed: Yes Ordered Tests: Active Orders 24 hr Category Date Time Status Re-Check Vital Signs STAT Care 07/02/18 11:02 Active Medication Summary Discontinued Medications Generic Name Dose Route Start Last Admin Trade Name Freq PRN Reason Stop Dose Admin Betamethasone Acet/Betameth SodPhos 6 mg 07/02/18 11:02 07/02/18 11:09 Celestone Soluspan 6mg/Ml IM 07/02/18 11:03 6 mg STAT ONE Administration Betamethasone Acet/Betameth SodPhos Confirm 07/02/18 11:06 Celestone Soluspan 6mg/Ml Administered 07/02/18 11:07 Dose 6 mg .ROUTE .STK-MED ONE - Progress Progress: improved (after meds), re-examined (after meds) Progress Note: 07/02/18 11:09 discussed treatment plan and will use IM Steroids and recheck; family at bedside 07/02/18 11:32 recheck and starting to clear; instructions given Counseled pt/family regarding: diagnosis, need for follow-up - Departure Time of Disposition: 11:33 Departure Disposition: Home Clinical Impression: Insect bite, Hives Condition: Stable Critical Care Time: No Referrals: SVETA MONTESINOS [Primary Care Provider] - Instructions: Insect Bites and Stings Additional Instructions: keep clean; use benadryl otc prn Follow-up with family doctor as directed. Call for appointment. Return if any problems. If you smoke please stop. Call or follow up with your family doctor for assistance if you need it to stop. Please wear your seatbelt when driving. Have a nice day. Thank you for allowing us to participate in your care today. :o) Dr Nahid Carpio
[2018-07-02 11:56] VITALS: BP 131/68; PULSE 68
== END 2018-07-02 11:46 | disposition home or self-care (01) ==
LOC: ED 10:49
DX: S40.861A Insect bite (nonvenomous) of right upper arm, initial encounter (principal); L50.9 Urticaria, unspecified
CPT/HCPCS: 96372; 99283; J0702

== ENCOUNTER 2021-01-18 12:35 | Day surgery (SDC) | payer OTHER ==
[2021-01-18] MEDS ORDERED: Sodium Chloride 0.9(Preservative Free) 10 ML IJ ONE (12:36)
[2021-01-18] MEDS ORDERED: Depo-Medrol 40 MG/ML IM ONE (12:36)
[2021-01-18] MEDS ORDERED: DIPRIVAN 200 MG/20 ML IV ONE ×2 (14:31→14:38)
[2021-01-18] MEDS ORDERED: Lactated Ringers 1,000 ML IV ONE (16:25)
--- NOTE | 2021-01-18 17:45 | XRAY ---
48 seconds of fluoroscopy was used in surgery for a left L4-L5 and L5-S1 transforaminal MOE.
== END 2021-01-18 15:05 | disposition home or self-care (01) ==
LOC: SDC-PAIN 12:35
PROVIDERS: ATTEND Psychiatry & Neurology Pain Medicine
DX: M54.16 Radiculopathy, lumbar region (principal); J45.909 Unspecified asthma, uncomplicated; F41.8 Other specified anxiety disorders; Z79.899 Other long term (current) drug therapy
CPT/HCPCS: 64483; 64484; 72100; 77003; 84703; J1030; J2704; Q9966

== ENCOUNTER 2021-03-08 09:46 | Day surgery (SDC) | payer OTHER ==
[2021-03-08] MEDS ORDERED: LIDOCAINE HCL 2% 100 MG/5 ML IJ ONE (09:47)
[2021-03-08] MEDS ORDERED: Depo-Medrol 40 MG/ML IM ONE (09:47)
[2021-03-08] MEDS ORDERED: DIPRIVAN 200 MG/20 ML IV ONE (10:51)
--- NOTE | 2021-03-08 11:44 | XRAY ---
37 seconds fluoroscopy time in surgery for right L3-S1 MBB.
--- NOTE | 2021-03-08 12:02 | XRAY ---
Indication: Right L3-S1 MBB. Intraoperative fluoroscopy provided for 37 seconds. Single digital spot image submitted for interpretation demonstrates posterior needle tips projecting over the expected right L3-S1 nerve roots. Correlate with intraoperative findings/report.
[2021-03-08] MEDS ORDERED: Lactated Ringers 1,000 ML IV ONE (15:31)
== END 2021-03-08 11:25 | disposition home or self-care (01) ==
LOC: SDC-PAIN 09:46
PROVIDERS: ATTEND Psychiatry & Neurology Pain Medicine
DX: M47.816 Spondylosis without myelopathy or radiculopathy, lumbar region (principal); F41.9 Anxiety disorder, unspecified; F32.9 Major depressive disorder, single episode, unspecified
CPT/HCPCS: 64493; 64494; 64495; 72020; 77002; 84703; J1030; J2704

== ENCOUNTER 2022-03-14 10:40 | Day surgery (SDC) | payer BC, OTHER ==
[2022-03-14] MEDS ORDERED: Depo-Medrol 40 MG/ML IM ONE (10:41)
[2022-03-14] MEDS ORDERED: Sodium Chloride 0.9(Preservative Free) 10 ML IJ ONE (10:41)
[2022-03-14] MEDS ORDERED: DIPRIVAN 200 MG/20 ML IV ONE ×2 (12:09→12:22)
[2022-03-14] MEDS ORDERED: Lactated Ringers 1,000 ML IV ONE (14:03)
--- NOTE | 2022-03-14 14:13 | XRAY ---
Indication: Left L4-S1 transforaminal MOE. Intraoperative fluoroscopy provided for 46 seconds. 2 digital spot images submitted for interpretation demonstrates posterior needle tips projecting over the expected left L4 and L5 nerve roots. Small amount of contrast injected for nuclear placement. Correlate with intraoperative findings/report.
--- NOTE | 2022-03-14 14:54 | XRAY ---
46 seconds fluoroscopy time in surgery for left L4-S1 transforaminal MOE.
== END 2022-03-14 12:42 | disposition home or self-care (01) ==
LOC: SDC-PAIN 10:40
PROVIDERS: ATTEND Psychiatry & Neurology Pain Medicine
DX: M54.16 Radiculopathy, lumbar region (principal); Z79.899 Other long term (current) drug therapy
CPT/HCPCS: 64483; 64484; 72100; 77003; 81025; J1030; J2704; Q9966

== ENCOUNTER 2023-05-08 13:58 | Day surgery (SDC) | payer OTHER ==
[2023-05-08] MEDS ORDERED: Depo-Medrol 40 MG/ML IM ONE (13:59)
[2023-05-08] MEDS ORDERED: LIDOCAINE HCL 1% 50 MG/5 ML VL PF IJ ONE (13:59)
[2023-05-08] MEDS ORDERED: Decadron 4 MG INJ IV ONE (13:59)
[2023-05-08] MEDS ORDERED: Sodium Chloride 0.9(Preservative Free) 10 ML IJ ONE (13:59)
[2023-05-08 15:00] LABS: HCG URINE TEST NEGATIVE (NEGATIVE)
[2023-05-08] MEDS ORDERED: Lactated Ringers 1,000 ML IV ONE (16:00)
[2023-05-08] MEDS ORDERED: DIPRIVAN 200 MG/20 ML IV ONE ×2 (16:19→16:27)
--- NOTE | 2023-05-08 22:47 | XRAY ---
Indication: Left piriformis injection. Intraoperative fluoroscopy provided for 8 seconds. Single digital spot image submitted for interpretation demonstrates posterior needle tip projecting over the expected left piriformis. Small amount of contrast injected for needle tip placement. Correlate with intraoperative findings/report.
--- NOTE | 2023-05-08 22:47 | XRAY ---
Indication: Left L4-S1 transforaminal MOE. Intraoperative fluoroscopy provided for 34 seconds. 7 digital spot images submitted for interpretation demonstrates posterior needle tips projecting over the expected left L4 and L5 nerve roots. Small amount of contrast injected for needle tip placement. Correlate with intraoperative findings/report.
--- NOTE | 2023-05-09 17:38 | XRAY ---
8 seconds of fluoroscopy was used in surgery for a left piriformis injection.
--- NOTE | 2023-05-09 17:38 | XRAY ---
34 seconds of fluoroscopy was used in surgery for a left L4-S1 transforaminal MOE.
== END 2023-05-08 16:52 | disposition home or self-care (01) ==
LOC: SDC-PAIN 13:58
PROVIDERS: ATTEND Psychiatry & Neurology Pain Medicine
DX: M54.16 Radiculopathy, lumbar region (principal); M79.18 Myalgia, other site; Z79.899 Other long term (current) drug therapy
CPT/HCPCS: 20552; 64483; 64484; 72100; 72170; 77002; 77003; 81025; J1030; J1100; J2001; J2704; Q9966

== ENCOUNTER 2023-10-16 12:43 | Day surgery (SDC) | payer OTHER ==
[2023-10-16] MEDS ORDERED: XYLOCAINE-MPF 1% 5ML SDV IJ ONE (12:44)
[2023-10-16] MEDS ORDERED: Sodium Chloride 0.9(Preservative Free) 10 ML IJ ONE (12:44)
[2023-10-16] MEDS ORDERED: Decadron 4 MG INJ IV ONE (12:44)
[2023-10-16 13:34] LABS: HCG URINE TEST NEGATIVE (NEGATIVE)
[2023-10-16] MEDS ORDERED: Lactated Ringers 1,000 ML IV ONE (14:42)
[2023-10-16] MEDS ORDERED: DIPRIVAN 200 MG/20 ML IV ONE ×2 (14:53→15:02)
[2023-10-16] MEDS ORDERED: Versed 2 MG/2 ML Injection ONE (14:55)
[2023-10-16] MEDS ORDERED: SUBLIMAZE 100 MCG/2 ML ONE (15:00)
--- NOTE | 2023-10-16 17:05 | XRAY ---
Indication: Left L4-S1 transforaminal MOE. Intraoperative fluoroscopy provided for 59 seconds. 8 digital spot images submitted for interpretation demonstrates posterior needle tips projecting over left L4 and L5 nerve roots. Small amount of contrast injected for needle tip placement. Correlate with intraoperative findings/report.
--- NOTE | 2023-10-16 17:07 | XRAY ---
Indication: Left piriformis injection. Intraoperative fluoroscopy provided for 9 seconds. Single digital spot image submitted for interpretation demonstrates posterior needle tip projecting over left piriformis. Small amount of contrast injected for needle tip placement. Correlate with intraoperative findings/report.
--- NOTE | 2023-10-16 17:41 | XRAY ---
59 seconds of fluoroscopy was used in surgery for a left L4-S1 transforaminal MOE.
--- NOTE | 2023-10-16 17:42 | XRAY ---
9 seconds of fluoroscopy was used in surgery for a left piriformis injection.
== END 2023-10-16 15:30 | disposition home or self-care (01) ==
LOC: SDC-PAIN 12:43
PROVIDERS: ATTEND Psychiatry & Neurology Pain Medicine
DX: M54.16 Radiculopathy, lumbar region (principal); M79.18 Myalgia, other site
CPT/HCPCS: 20552; 64483; 64484; 72100; 72170; 77002; 77003; 81025; J1100; J2250; J2704; J3010; Q9966

== ENCOUNTER 2024-01-01 13:15 | Day surgery (SDC) | payer OTHER ==
[2024-01-01] MEDS ORDERED: LIDOCAINE HCL 1% 50 MG/5 ML VL PF IJ ONE (13:16)
[2024-01-01] MEDS ORDERED: Depo-Medrol 40 MG/ML IM ONE (13:16)
[2024-01-01] MEDS ORDERED: Decadron 4 MG INJ IV ONE (13:16)
[2024-01-01] MEDS ORDERED: Sodium Chloride 0.9(Preservative Free) 10 ML IJ ONE (13:16)
[2024-01-01 14:20] LABS: HCG URINE TEST NEGATIVE (NEGATIVE)
[2024-01-01] MEDS ORDERED: DIPRIVAN 200 MG/20 ML IV ONE ×2 (15:44→15:53)
[2024-01-01] MEDS ORDERED: Lactated Ringers 1,000 ML IV ONE (16:07)
--- NOTE | 2024-01-01 16:44 | XRAY ---
Indication: Left piriformis injection. Intraoperative fluoroscopy provided for 19 seconds. Single digital spot image submitted for interpretation demonstrates posterior needle tip projecting over left piriformis. Small amount of contrast injected for needle tip placement. Correlate with intraoperative findings/report.
--- NOTE | 2024-01-01 16:44 | XRAY ---
Indication: Caudal MOE. Intraoperative fluoroscopy provided for 37 seconds. 2 digital spot image submitted for interpretation demonstrates caudal needle tip projecting mid sacrum. Small amount of contrast injected for needle tip placement. Correlate with intraoperative findings/report.
--- NOTE | 2024-01-02 08:55 | XRAY ---
19 seconds of fluoroscopy was used in surgery for a left piriformis injection.
--- NOTE | 2024-01-02 08:55 | XRAY ---
37 seconds of fluoroscopy was used in surgery for a caudal MOE.
== END 2024-01-01 16:20 | disposition home or self-care (01) ==
LOC: SDC-PAIN 13:15
PROVIDERS: ATTEND Psychiatry & Neurology Pain Medicine
DX: M54.16 Radiculopathy, lumbar region (principal)
CPT/HCPCS: 20552; 62323; 72170; 72220; 77002; 77003; 81025; J1010; J1100; J2001; J2704; Q9966